=== PATIENT | female | born 1950 | race Caucasian/White ===

== ENCOUNTER 2022-04-28 14:34 | Emergency (ER) | payer MEDICARE, MEDICAID ==
[~2022-04-28] VITALS: Ht 180.3 cm; Wt 136.4 kg
[~2022-04-28 14:34] MED LIST: CALC667T2 PO; CARSR60C PO; DOCU-148; LEVO200T PO; SEVE800T8 PO; VIT1TABL50 PO
[2022-04-28 15:42] LABS: BASOPHILS % (AUTO) 0.4 % (0-1); EOSINOPHILS # (AUTO) 0.1 X10'3 (0-0.9); EOSINOPHILS % (AUTO) 1.6 % (0-6); HEMATOCRIT 40.9 % (35.0-45.0); LYMPHOCYTES # (AUTO) 0.6 X10'3 (1.1-4.8); LYMPHOCYTES % (AUTO) 8.6 % (21-51); MEAN CORPUSCULAR HEMOGLOBIN 30.4 PG (27.0-31.0); MEAN CORPUSCULAR HGB CONC 31.8 g/dL (33.0-36.5); MEAN CORPUSCULAR VOLUME 95.5 FL (78-98); MEAN PLATELET VOLUME 9.1 FL (7.4-10.4); MONOCYTES # (AUTO) 0.4 X10'3 (0-0.9); MONOCYTES % (AUTO) 5.6 % (2-12); NEUTROPHILS # (AUTO) 5.7 X10'3 (1.8-7.7); NEUTROPHILS % (AUTO) 83.8 % (42-75); PLATELET COUNT 109 X10'3 (140-440); RED BLOOD COUNT 4.28 X10'6 (4.20-5.60); RED CELL DISTRIBUTION WIDTH 16.2 % (11.5-14.5); WHITE BLOOD COUNT 6.7 X10'3 (4.5-11.0)
[2022-04-28 15:49] LABS: ALANINE AMINOTRANSFERASE 10 U/L (12-78); ALBUMIN 3.8 G/DL (3.4-5.0); ALBUMIN/GLOBULIN RATIO 0.8 (1.1-1.5); ALKALINE PHOSPHATASE 114 IU/L (46-116); ANION GAP 11 (8-16); ASPARTATE AMINO TRANSFERASE 4 U/L (10-37); BILIRUBIN,TOTAL 0.3 MG/DL (0.1-1.0); BLOOD UREA NITROGEN 48 MG/DL (7-18); BUN/CREATININE RATIO 7.8 (6.6-38.0); CALCIUM 8.2 MG/DL (8.5-10.1); CHLORIDE 95 MMOL/L (99-107); CREATININE 6.18 MG/DL (0.40-0.90); GLUCOSE 126 MG/DL (70-104); POTASSIUM 3.6 MMOL/L (3.5-5.1); SODIUM 137 MMOL/L (135-145); TOTAL CARBON DIOXIDE 30.8 MMOL/L (24-32); TOTAL PROTEIN 8.6 G/DL (6.4-8.2); eGFR 7 ML/MIN
[2022-04-28 19:25] VITALS: BP 134/66
[2022-04-28] MEDS ORDERED: proparacaine 0.5% ophthalmic drops 15ml EACHEYE ONE (21:35)
[2022-04-28] MEDS ORDERED: HYDROcodone/acetaminophen 5mg/325mg tablet PO ONE (22:15)
[2022-04-28] MEDS ORDERED: timolol 0.5% ophthalmic solution 5ml bottle LEFTEYE ONE (22:45)
[2022-04-28] MEDS ORDERED: acetaZOLAMIDE IV 500mg inj IV ONE (22:45)
[2022-04-28] MEDS ORDERED: pilocarpine 2% ophthalmic drops 15ml LEFTEYE ONE (22:45)
[2022-04-29] MEDS ORDERED: acetaZOLAMIDE 250mg tablet PO ONE (01:05)
[2022-04-29] MEDS ORDERED: HYDROcodone/acetaminophen 5mg/325mg tablet PO ONE (01:05)
== END 2022-04-29 02:45 | disposition home or self-care (01) ==
LOC: ER 14:34
DX: H20.9 Unspecified iridocyclitis (principal); I11.9 Hypertensive heart disease without heart failure; E78.00 Pure hypercholesterolemia, unspecified; E13.22 Other specified diabetes mellitus with diabetic chronic kidney disease; N18.9 Chronic kidney disease, unspecified; I10 Essential (primary) hypertension; F41.9 Anxiety disorder, unspecified; F32.A Depression, unspecified; K21.9 Gastro-esophageal reflux disease without esophagitis; Z88.5 Allergy status to narcotic agent; Z79.899 Other long term (current) drug therapy
CPT/HCPCS: 36415; 70482; 80053; 82948; 85025; 99284